=== PATIENT | male | born 1990 | race Caucasian/White ===

== ENCOUNTER 2019-01-17 23:18 | Emergency (ER) | payer OTHER ==
[~2019-01-17] VITALS: Ht 172.7 cm; Wt 153.3 kg
[2019-01-17 23:24] VITALS: Ht 172.7 cm; Wt 153.3 kg
[2019-01-18 01:56] VITALS: BP 137/81
== END 2019-01-18 01:30 | disposition home or self-care (01) ==
LOC: ED 23:18
DX: J02.0 Streptococcal pharyngitis (principal); F41.9 Anxiety disorder, unspecified
CPT/HCPCS: J1100

== ENCOUNTER 2019-01-29 10:21 | Emergency (ER) | payer OTHER ==
[~2019-01-29] VITALS: Ht 172.7 cm; Wt 153.3 kg
[2019-01-29 10:23] VITALS: Ht 172.7 cm; Wt 153.3 kg
[2019-01-29 10:56] VITALS: BP 152/92
== END 2019-01-29 10:56 | disposition home or self-care (01) ==
LOC: ED 10:21
DX: J03.90 Acute tonsillitis, unspecified (principal); E66.01 Morbid (severe) obesity due to excess calories; Z68.43 Body mass index [BMI] 50.0-59.9, adult; F41.9 Anxiety disorder, unspecified
CPT/HCPCS: J0696; J1100

== ENCOUNTER 2019-02-14 10:53 | Emergency (ER) | payer OTHER ==
[~2019-02-14] VITALS: Ht 172.7 cm; Wt 155.6 kg
[2019-02-14 10:58] VITALS: Ht 172.7 cm; Wt 155.6 kg
[2019-02-14 13:07] VITALS: BP 133/80
== END 2019-02-14 13:19 | disposition home or self-care (01) ==
LOC: ED 10:53
DX: J02.9 Acute pharyngitis, unspecified (principal); F41.9 Anxiety disorder, unspecified
CPT/HCPCS: 82962; J7030

== ENCOUNTER 2019-06-28 15:36 | Emergency (ER) | payer MEDICAID ==
[~2019-06-28] VITALS: Ht 172.7 cm; Wt 166.5 kg
[2019-06-28 15:51] VITALS: Ht 172.7 cm; Wt 166.5 kg
[2019-06-28 18:21] VITALS: BP 117/72
== END 2019-06-28 18:35 | disposition home or self-care (01) ==
LOC: ED 15:36
DX: N12 Tubulo-interstitial nephritis, not specified as acute or chronic (principal); E66.01 Morbid (severe) obesity due to excess calories; Z98.890 Other specified postprocedural states
CPT/HCPCS: 82962; J0696; J1885; Q0162

== ENCOUNTER 2019-09-02 11:07 | Emergency (ER) | payer OTHER ==
[~2019-09-02] VITALS: Ht 175.3 cm; Wt 160.1 kg
[2019-09-02 11:29] VITALS: Ht 175.3 cm; Wt 160.1 kg
[2019-09-02 12:47] LABS: microscopic required? YES; urine erythrocyte TRACE (NEGATIVE)
[2019-09-02 12:54] VITALS: BP 132/82
== END 2019-09-02 12:54 | disposition home or self-care (01) ==
LOC: ED 11:07
PROVIDERS: Emergency Medicine
DX: N39.0 Urinary tract infection, site not specified (principal); J02.9 Acute pharyngitis, unspecified; Z98.890 Other specified postprocedural states
CPT/HCPCS: 87491; 87591

== ENCOUNTER 2019-09-07 08:37 | Emergency (ER) | payer OTHER ==
[~2019-09-07] VITALS: Ht 175.3 cm; Wt 158.8 kg
[2019-09-07 08:39] VITALS: Ht 175.3 cm; Wt 158.8 kg
[2019-09-07 10:00] VITALS: BP 130/74
== END 2019-09-07 10:00 | disposition home or self-care (01) ==
LOC: ED 08:37
DX: J03.90 Acute tonsillitis, unspecified (principal); Z98.890 Other specified postprocedural states
CPT/HCPCS: J0561; J1100

== ENCOUNTER 2020-03-02 03:22 | Emergency (ER) | payer OTHER ==
[~2020-03-02] VITALS: Ht 170.2 cm; Wt 175.5 kg
[2020-03-02 03:30] VITALS: Ht 170.2 cm; Wt 175.5 kg
[2020-03-02 04:01] LABS: microscopic required? NO
[2020-03-02 04:17] LABS: BASOPHIL % 0.7 % (0-2); PLATELET COUNT 227 x10^3mcL (130-400); RED CELL DISTRIBUTION WIDTH 13.1 % (11.5-14.5)
[2020-03-02 04:20] LABS: urine erythrocyte NEGATIVE (NEGATIVE)
[2020-03-02 04:23] LABS: CALCIUM 8.2 mg/dL (8.5-10.1); CARBON DIOXIDE 31.2 mmol/L (21-32); CHLORIDE SERUM 101 mmol/L (98-107); CREATININE SERUM 1.1 mg/dL (0.7-1.3); GFR1 > 60 mL/min; GLUCOSE SERUM 113 mg/dL (74-106); POTASSIUM SERUM 3.7 mmol/L (3.5-5.1); SODIUM SERUM 136 mmol/L (136-145)
[2020-03-02 04:27] LABS: ALBUMIN 3.5 g/dL (3.4-5.0); ALKALINE PHOSPHATASE 58 U/L (46-116); ALT/SGPT 59 U/L (16-63); AST/SGOT 27 U/L (15-37); BILIRUBIN TOTAL 0.54 mg/dL (0.20-1.00); CHOLESTEROL 169 mg/dL (<200); TOTAL PROTEIN, SERUM 7.1 g/dL (6.4-8.2)
[2020-03-02 04:28] LABS: CHOLESTEROL/HDL RATIO 5.6; HDL CHOLESTEROL 30 mg/dL (40-60); TRIGLYCERIDES 203 mg/dL (<150)
[2020-03-02 04:34] LABS: T3 TOTAL 1.69 ng/mL
[2020-03-02 04:35] LABS: FREE T4 1.09 ng/dL (0.76-1.46); FREE THYROXINE INDEX 2.4 ug/dL (1.4-4.5); T4(THYROXINE) 6.8 ug/dL (4.7-13.3)
[2020-03-02 04:39] LABS: AMPHETAMINE QUAL UR NONE DETECTED (See below)
[2020-03-02 04:59] VITALS: BP 135/87
== END 2020-03-02 05:00 | disposition home or self-care (01) ==
LOC: ED 03:22
PROVIDERS: Specialist
DX: R60.0 Localized edema (principal); E66.01 Morbid (severe) obesity due to excess calories
CPT/HCPCS: 83880; 84439; Q0092

== ENCOUNTER 2020-06-01 06:03 | Emergency (ER) | payer OTHER, SELFPAY ==
[~2020-06-01] VITALS: Ht 175.3 cm; Wt 175.5 kg
[2020-06-01 06:05] VITALS: Ht 175.3 cm; Wt 175.5 kg
[2020-06-01 06:48] VITALS: BP 120/93
== END 2020-06-01 06:48 | disposition home or self-care (01) ==
LOC: ED 06:03
DX: R53.1 Weakness (principal); R07.89 Other chest pain; J02.9 Acute pharyngitis, unspecified; R05 Cough; E66.9 Obesity, unspecified; Z20.828 Contact with and (suspected) exposure to other viral communicable diseases